=== PATIENT | female | born 1950 | race Caucasian/White ===

== ENCOUNTER 2017-12-13 13:15 | Outpatient (CLI) | payer MEDICARE | END 2017-12-13 13:16 | disposition home or self-care (01) | LOC: BICMAMMO 13:15 | PROVIDERS: ATTEND Emergency Medicine | DX: Z12.31 Encounter for screening mammogram for malignant neoplasm of breast (principal); R92.1 Mammographic calcification found on diagnostic imaging of breast | CPT/HCPCS: 77063; 77067 ==

== ENCOUNTER 2018-12-14 11:34 | Outpatient (CLI) | payer MEDICARE ==
--- NOTE | 2018-12-14 12:32 | MMO ---
Bilateral MAMMO Bilat Screen [facility]. CLINICAL HISTORY: Patient is 68 years old and is seen for screening. The patient has no family history of breast cancer. The patient has no personal history of cancer. VIEWS: The views performed were: bilateral craniocaudal with tomosynthesis; bilateral mediolateral oblique with tomosynthesis; and left mediolateral oblique. FILMS COMPARED: The present examination has been compared to prior imaging studies performed at [facility] on 12/02/2014, 12/05/2015, 12/10/2016 and 12/13/2017. This study has been interpreted with the assistance of computer-aided detection. MAMMOGRAM FINDINGS: There are scattered fibroglandular densities. There are stable benign appearing calcifications seen in both breasts. There are no suspicious masses, suspicious calcifications, or new areas of architectural distortion. IMPRESSION: THERE IS NO MAMMOGRAPHIC EVIDENCE OF MALIGNANCY. A ROUTINE FOLLOW-UP MAMMOGRAM IN 1 YEAR IS RECOMMENDED. THE RESULTS OF THIS EXAM WERE SENT TO THE PATIENT. ACR BI-RADS Category 2 - Benign finding MAMMOGRAPHY NOTE: 1. A negative mammogram report should not delay a biopsy if a dominant of clinically suspicious mass is present. 2. Approximately 10% to 15% of breast cancers are not detected by mammography. 3. Adenosis and dense breasts may obscure an underlying neoplasm. Reported by: JAYNE GANDHI MD Electonically Signed: [id number]
== END 2018-12-14 11:35 | disposition home or self-care (01) ==
LOC: BICMAMMO 11:34
PROVIDERS: ATTEND Emergency Medicine
DX: Z12.31 Encounter for screening mammogram for malignant neoplasm of breast (principal)
CPT/HCPCS: 77063; 77067

== ENCOUNTER 2019-03-07 12:23 | Outpatient (CLI) | payer MEDICARE ==
--- NOTE | 2019-03-07 13:29 | BD ---
BONE DENSITOMETRY USING DEXA: Date: 03/07/2019 HISTORY: Postmenopausal screening for osteoporosis. FINDINGS: Lumbar Spine: BMD (g/cm2) L1 0.818 T-Score: -1.6 Z-Score: 0.3 L2 0.823 T-Score: -1.9 Z-Score: 0.2 L3 0.905 T-Score: -1.6 Z-Score: 0.5 L4 0.931 T-Score: -1.2 Z-Score: 1.0 L1-L4 0.877 T-Score: -1.5 Z-Score: 0.5 Femoral Neck: 0.574 T-Score: -2.5 Z-Score: -0.7 Total Femur: 0.732 T-Score: -1.7 Z-Score: -0.2 IMPRESSION: Osteoporosis. POS: VADIM
== END 2019-03-07 12:24 | disposition home or self-care (01) ==
LOC: BICMAMMO 12:23
PROVIDERS: ATTEND Emergency Medicine
DX: M85.80 Other specified disorders of bone density and structure, unspecified site (principal); M81.0 Age-related osteoporosis without current pathological fracture
CPT/HCPCS: 77080

== ENCOUNTER 2019-07-05 13:11 | Outpatient (CLI) | payer MEDICARE ==
--- NOTE | 2019-07-05 16:28 | CT ---
CT OF LEFT WRIST PERFORMED WITHOUT CONTRAST ENAHNCEMENT: 07/05/19 HISTORY: Patient fell on May 31 and injured left wrist. History of a tear of the scapholunate ligament. The patient was unable to have an MRI examination due to pacemaker and no contrast was administered f or this examination. Patient has a history of allergy to contrast. This was not an arthrographic exam . The scapholunate interval does not appear widened. The lunotriquetral joint space also appears unrema rkable. Distal radial fracture is present. The fracture has a slightly Y-shaped configuration. The dorsal Y-s hape is related to the dorsal margin of the radius. The fracture line involves the very posterior art icular surface of the distal radius. Also with a fracture linear through the cortex below the level o f the fused epiphyseal plate. The fracture line then extends transversely to the volar aspect of the distal radius at the level of the fused epiphyseal plate. Overall alignment appears fairly satisfacto ry. The small defect in the articular surfaces along the dorsal ulnar margin. No associated ulnar sty loid fracture. Bones appear demineralized. There are arthritic changes of the first carpometacarpal joint space. IMPRESSION: Distal radial fracture. Some sclerosis associated with the volar transverse component of the fracture would suggest healing. POS: JANICE
== END 2019-07-05 13:12 | disposition home or self-care (01) ==
LOC: BICCT 13:11
PROVIDERS: ATTEND Orthopaedic Surgery Hand Surgery
DX: S63.8X2A Sprain of other part of left wrist and hand, initial encounter (principal)

== ENCOUNTER 2019-12-17 10:07 | Outpatient (CLI) | payer MEDICARE ==
--- NOTE | 2019-12-17 10:53 | MMO ---
Bilateral MAMMO Bilat Screen [facility]. CLINICAL HISTORY: Patient is 69 years old and is seen for screening. The patient has no family history of breast cancer. The patient has no personal history of cancer. VIEWS: The views performed were: bilateral craniocaudal with tomosynthesis and bilateral mediolateral oblique with tomosynthesis. FILMS COMPARED: The present examination has been compared to prior imaging studies performed at [facility] on 12/05/2015, 12/10/2016, 12/13/2017 and 12/14/2018. This study has been interpreted with the assistance of computer-aided detection. MAMMOGRAM FINDINGS: There are scattered fibroglandular densities. There are stable benign appearing calcifications seen in both breasts. There are also vascular calcifications. There are no suspicious masses, suspicious calcifications, or new areas of architectural distortion. IMPRESSION: THERE IS NO MAMMOGRAPHIC EVIDENCE OF MALIGNANCY. A ROUTINE FOLLOW-UP MAMMOGRAM IN 1 YEAR IS RECOMMENDED. THE RESULTS OF THIS EXAM WERE SENT TO THE PATIENT. ACR BI-RADS Category 2 - Benign finding MAMMOGRAPHY NOTE: 1. A negative mammogram report should not delay a biopsy if a dominant of clinically suspicious mass is present. 2. Approximately 10% to 15% of breast cancers are not detected by mammography. 3. Adenosis and dense breasts may obscure an underlying neoplasm. Reported by: JAYNE GANDHI MD Electonically Signed: [id number]
== END 2019-12-17 10:08 | disposition home or self-care (01) ==
LOC: BICMAMMO 10:07
PROVIDERS: ATTEND Emergency Medicine
DX: Z12.31 Encounter for screening mammogram for malignant neoplasm of breast (principal)
CPT/HCPCS: 77063; 77067

== ENCOUNTER 2020-10-05 03:24 | Emergency (ER) | payer OTHER, MEDICARE | END 2020-10-05 05:45 | disposition home or self-care (01) | LOC: ERS 03:24 | DX: S22.32XA Fracture of one rib, left side, initial encounter for closed fracture (principal); I11.0 Hypertensive heart disease with heart failure; I50.9 Heart failure, unspecified; W01.0XXA Fall on same level from slipping, tripping and stumbling without subsequent striking against object, initial encounter; Y93.K1 Activity, walking an animal | CPT/HCPCS: 71250; 94799 ==

== ENCOUNTER 2020-10-21 21:09 | Emergency (ER) | payer MEDICARE ==
[2020-10-21 21:47] LABS: #Eosinphils 0.2 thou/uL (0.0-0.7); #Lymphocytes 1.3 thou/uL (1.20-3.40); #Monocytes 0.6 thou/uL (0.11-0.59); #Neutrophils 3.1 thou/uL (1.40-6.50); %Basophils 0.1 % (0.0-1.0); %Eosinophils 4.2 % (0.0-10.0); %Lymphocytes 25.3 % (21.0-51.0); %Monocytes 10.7 % (0.0-10.0); %Neutrophils 59.7 % (42.0-75.0); Hemoglobin 12.2 g/dL (12.0-16.0); Mean Corpuscular HGB CONC 31.2 g/dL (32.0-36.0); Mean Corpuscular Hemoglobin 31.5 pg (27.0-31.0); Mean Platelet Volume 7.8 fL (7.4-10.4); Platelet Count 194 thou/uL (130-400); RBC Distribution Width 12.6 % (11.5-14.5); Red Blood Cell (RBC) Count 3.85 mill/uL (4.20-5.40); White Blood Cell (WBC) Count 5.1 thou/uL (4.8-10.8)
[2020-10-21] MEDS ORDERED: Lorazepam 2 MG/ML VIAL ONE (21:49)
[2020-10-21 22:27] LABS: ALT (SGPT) 32 U/L (8-55); AST (SGOT) 46 U/L (5-34); Albumin 3.8 g/dL (3.4-4.8); Alkaline Phosphatase 110 U/L (40-110); Anion Gap 16 mmol/L (10-20); BUN (Urea Nitrogen) 18 mg/dL (9.8-20.1); Bilirubin, Total 1.1 mg/dL (0.2-1.2); CK (CPK) 44 U/L (29-168); Calc. Creatinine Clearance 0 mL/min (70-130); Calcium 9.1 mg/dL (7.8-10.44); Carbon Dioxide 23 mmol/L (23-31); Chloride 96 mmol/L (98-107); Globulin 3.6 g/dL (2.4-3.5); Glucose 78 mg/dL (83-110); Lipase 25 U/L (8-78); Potassium 3.8 mmol/L (3.5-5.1); Protein, Total 7.4 g/dL (5.8-8.1); Sodium 131 mmol/L (136-145)
== END 2020-10-21 23:29 | disposition home or self-care (01) ==
LOC: ERS 21:09
DX: F41.9 Anxiety disorder, unspecified (principal); I11.0 Hypertensive heart disease with heart failure; I50.9 Heart failure, unspecified; Z79.01 Long term (current) use of anticoagulants; Z79.899 Other long term (current) drug therapy
CPT/HCPCS: 36415; 71045; 80053; 82550; 83690; 84484; 85025; 93005; 96374; J2060

== ENCOUNTER 2021-01-29 11:19 | Outpatient (CLI) | payer MEDICARE | END 2021-01-29 11:20 | disposition home or self-care (01) | LOC: BICMAMMO 11:19 | PROVIDERS: ATTEND Emergency Medicine | DX: Z12.31 Encounter for screening mammogram for malignant neoplasm of breast (principal) | CPT/HCPCS: 77063; 77067 ==

== ENCOUNTER 2021-01-30 13:39 | Emergency (ER) | payer MEDICARE | END 2021-01-30 17:15 | disposition home or self-care (01) | LOC: ERS 13:39 | DX: M79.605 Pain in left leg (principal); I11.0 Hypertensive heart disease with heart failure; I50.9 Heart failure, unspecified; Z79.899 Other long term (current) drug therapy; Z79.01 Long term (current) use of anticoagulants ==

== ENCOUNTER 2021-07-07 10:20 | Outpatient (CLI) | payer MEDICARE | END 2021-07-07 10:21 | disposition home or self-care (01) | LOC: CT 10:20 | PROVIDERS: ATTEND Urology | DX: R31.29 Other microscopic hematuria (principal) | CPT/HCPCS: 74178; 82565 ==

== ENCOUNTER 2021-12-23 12:26 | Outpatient (CLI) | payer MEDICARE, OTHER | END 2021-12-23 12:27 | disposition home or self-care (01) | LOC: ULT 12:26 | PROVIDERS: ATTEND Student in an Organized Health Care Education/Training Program | DX: I50.42 Chronic combined systolic (congestive) and diastolic (congestive) heart failure (principal); M79.604 Pain in right leg; M79.605 Pain in left leg; I07.1 Rheumatic tricuspid insufficiency; I48.20 Chronic atrial fibrillation, unspecified; I70.8 Atherosclerosis of other arteries | CPT/HCPCS: 93306; 93923 ==

== ENCOUNTER 2022-02-01 10:42 | Outpatient (CLI) | payer MEDICARE, OTHER | END 2022-02-01 10:43 | disposition home or self-care (01) | LOC: BICMAMMO 10:42 | PROVIDERS: ATTEND Student in an Organized Health Care Education/Training Program | DX: Z12.31 Encounter for screening mammogram for malignant neoplasm of breast (principal); R92.8 Other abnormal and inconclusive findings on diagnostic imaging of breast | CPT/HCPCS: 77063; 77067 ==

== ENCOUNTER 2022-08-17 14:46 | Outpatient (CLI) | payer MEDICARE, OTHER | END 2022-08-17 14:47 | disposition home or self-care (01) | LOC: BICRAD 14:46 | PROVIDERS: ATTEND Student in an Organized Health Care Education/Training Program | DX: S22.41XD Multiple fractures of ribs, right side, subsequent encounter for fracture with routine healing (principal); M47.814 Spondylosis without myelopathy or radiculopathy, thoracic region; I51.7 Cardiomegaly; J94.8 Other specified pleural conditions | CPT/HCPCS: 71046; 72072; 72100 ==